=== PATIENT | male | born 1980 | race Hispanic/Latino ===

== ENCOUNTER 2017-04-13 02:24 | Inpatient (IN) | payer OTHER ==
[~2017-04-13] VITALS: Ht 180.3 cm; Wt 161.9 kg
[~2017-04-13 02:24] MED LIST: ATORVASTATIN CA20 M1 PO; BACTRIM DS TAB1 EACH PO; GLYBURIDE2.5 M1 PO; INDOMETHACIN25 M1 PO; LISINOPRIL2.5 M1 PO; METFORMIN HCL1000 M1 PO; TOPROL XL25 M1 PO
--- NOTE | 2017-04-13 10:34 | Admission Core Measures ---
Admission Meds I reviewed the following Meds: Current Medications Sig/Mathieu Start time Last Medication Dose Stop Time Status Admin Cefazolin Sodium 2,000 MG ONCE 04/13 0000 NR (Kefzol-Ancef Inj) 04/13 2359 Dexamethasone 10 MG ONCE 04/13 NR (Decadron) 04/13 2359 Heparin Sodium 5,000 UNIT ONCE 04/13 NR (Porcine) 04/13 2359 Acute Coronary Syndrome Inclusion Criteria ACS Diagnosis No Inpatient Core Measures LDL Reminder: If No, please order W/I first 24hr of stay Congestive Heart Failure Inclusion Criteria CHF Diagnosis No Cerebrovascular accident Inclusion Criteria CVA/TIA Diagnosis No Inpatient Core Measures Bedside Swallow Eval Reminder: If BSE failed, place ST order Antithrombotic Reminder: Order Antithrombotic Medication by end of day 2 Antithrombotic Reminder: Document Reason Antithrombotic Not ordered by end of day 2 AFIB/Flutter Reminder: If Present, add to problem list AFIB/Flutter Reminder: Order Anticoag Medication for pts with AFIB/Flutter Atherosclerosis Reminder: If Present, add to problem list LDL Reminder: If No, please order W/I first 24hr of stay PT Order Reminder: If No, please order Venous thromboembolism Inpatient Core Measures VTE Risk Factors: Obesity, Surgery [facility] prophylaxis d/t No contraindications No VTE Pharm Prophylaxis d/t No contraindications Inclusion Criteria - Per Current guidelines, there needs to be overlap - treatment for the first 5 days of Warfarin therapy. - Parenteral Anticoagulation (IV or SC) needs to be - given along with Warfarin therapy. VTE Diagnosis No VTE Type NONE VTE Confirmed by (Test) NONE Problem List As ranked by this Provider includes Assessment & Plan 1. S/P laparoscopic sleeve gastrectomy HOME MEDS Home Med List Atorvastatin Calcium 20 MG TABLET 1 TAB PO DAILY CHOLESDTEROL (Reported) Glyburide 2.5 MG TABLET 1 TAB PO DAILY DM II (Reported) Lisinopril 2.5 MG TABLET 1 TAB PO DAILY HTN (Reported) Metformin HCl 1,000 MG TABLET 1 TAB PO BID DM II (Reported) Metoprolol Succ XL (Toprol XL) 25 MG TAB 1 TAB PO DAILY HTN (Reported)
--- NOTE | 2017-04-13 10:53 | Operative Report ---
Operative/Inv Procedure Report Surgery Date: 04/13/17 Name of Procedure: Laparoscopic sleeve gastrectomy and upper endoscopy. Pre-Operative Diagnosis: Severe morbid obesity BMI 51 type 2 diabetes hypertension and hypercholesterolemia Post-Operative Diagnosis: Severe morbid obesity BMI 51 diabetes hypertension hypercholesterolemia. Estimated Blood Loss: 50ml to 100ml Surgeon/Art Gallery Director: VALENTÍN IRAHETA MD, M.D. Anesthesia: general endotracheal tube Implants: Premium and seam guard. Urine Output: No Dupree used Drains: One CORY drain in the right upper quadrant overlying the staple line Specimens: The stomach Microbiology: None Complications: Complications Operative Indication: The patient is a 36-year-old male with severe morbid obesity and be my 51 is undergone multiple attempts at weight loss with no success. His undergone his completely workup and evaluation for laparoscopic sleeve gastrectomy. The risks and potential complications which include bleeding infection deep venous thrombosis pulmonary embolism injury to the esophagus stomach and small intestine in detail and he understands. Operative/Procedure Note Note: Patient was brought into the operating room placed in the operating room table in the supine position. A footboard was placed so that the patient may be placed in steep reverse Trendelenburg. The patient was prepped and draped in a sterile fashion. Incision was made vertically below the umbilicus down to the fascia the fascia was incised transversely. The 0 Vicryl suture was placed in the fascia. 15 mm port was inserted into the umbilical area. The abdomen was insufflated with CO2 gas. The port is placed in the right upper quadrant. Movement reports place in the left upper quadrant. Her port is placed in the right midabdomen. Report is placed group home between the xiphoid and the umbilicus. Xiphoid 5 mm incision is made and a Rebecca liver retractor is inserted and the liver is elevated. The liver was noted to be edematous and large despite the patient is a 22 pounds preoperatively. The ports were placed in the usual location anatomically. Despite this the patient's torso was quite long. An reach to the stomach was somewhat longer. The gastro-colic ligament was taken down with the LigaSure device. The antrum was performed all the way up to the short gastric vessels which were sequentially taken down with the LigaSure device. The flap Was from the left crura of the diaphragm. There was a long reach to this area but adequate hemostasis was achieved. The N G-tube was used to drain the stomach. Was no evidence of a hiatal hernia. At this time the 40 Wallisian bougie was inserted into the stomach. He was performed with black cartridge staplers and seam guard. Because of torque multiple seam guards were used. 3 staplers devices were used. As torque was encountered during the stapling. All the staple lines were excellent and there were no missed firings of rocío. All block cartridges with seam guard were used for the entire staple line except one purple cartridge. With seam guard. The stomach was placed in a laparoscopic bag and retrieved through the umbilicus. Upper endoscopy was performed the usual fashion with Olympus endoscope inserted in the posterior oropharynx down the esophagus through the sleeve was visualized was active excellent sleeve that was not too tight. The duodenum was intubated and appeared within normal limits. Stomach was suctioned out and the scope was removed and the GE junction was noted at 40 cm. Laparoscopy was completed as a CORY drain was placed over the staple line and brought out the right upper quadrant. Under direct vision. Latissimus was closed with 2 interrupted 0 Vicryl sutures. The skin was closed with 4-0 Monocryl. Steri-Strips were placed in the wound site. Sterile dressing on the wound. The CORY was sewn in with a 2-0 nylon. Patient tolerated the procedure well was brought to recovery room in stable condition. end of dictation Findings: Long torso, no hiatal hernia. A torque secondary to abdominal wall thickness and density. Discharge Disposition: Same Day Admissions
--- NOTE | 2017-04-13 16:52 | PN- Bariatrics ---
Subjective Subjective: POSTOP CHECK takins stage 1 with some belching, no flatus/bm, +oob, +voiding, pain present though controlled w meds, no n/v Objective Vital Signs and I&Os Intake & Output 04/13 1600 04/13 0800 04/13 0000 04/12 1600 04/12 0800 04/12 0000 Intake Total Output Total Balance Patient 357 lb Weight Weight Reported by Patient Measurement Method Physical Exam: gen: nad card: s1s2 rrr pulm: ctab abd: obese, dressings with serosang drainage, JPx1-patent, serosang drainage, ttp throughout, soft Assessment/Plan Assessment/Plan A: POD0 sp lap gastric sleeve, with postop pain, stable. P: prn pain meds oob, ambulate, dvt ppx stg 1 diet, npo p mn, ugi in am am labs ivf i&os home meds will dw attending Core Measures/Miscellaneous Venous Thromboembolism VTE Risk Factors: Surgery VTE Contraindications: No Contraindications VTE Diagnosis: No VTE Type: NONE VTE Confirmed by (Test): NONE Beta Micah Is Beta Micah a Home Med? Yes Antibiotics Is Patient on Antibiotics? Yes
[2017-04-13 18:56] VITALS: BP 164/79
[2017-04-13 22:27] VITALS: BP 152/86
--- NOTE | 2017-04-14 07:58 | PN- Bariatrics ---
See Addendum Subjective Subjective: Feels ok. Vomited once a few hours ago, but currently not nauseous. NPO awaiting upper gi study. Objective Vital Signs and I&Os Vital Signs Date Time Temp Pulse Resp B/P B/P Pulse O2 O2 Flow FiO2 Mean Ox Delivery Rate 04/13 2227 99.2 90 18 152/86 97 Room Air 06/ 2200 96 Room Air 06/ 1856 98.5 106 18 164/79 96 Room Air 06/ 1800 96 Room Air Room Air 06/ 1723 Room Air 06/ 1600 96 Room Air Room Air Intake & Output 04/14 0800 06/ 0000 06/05 1600 06/ 0800 06/ 0000 06/ 1600 Intake Total 1000 585 Output Total 1485 510 Balance -485 75 Intake, IV 1000 375 Intake, Oral 210 Output, 30 Drainage Output, Other 35 Output, Urine 1450 480 Patient 357 lb Weight Weight Reported by Patient Measurement Method Current Medications: Current Medications Sig/Mathieu Start time Last Medication Dose Route Stop Time Status Admin Acetaminophen/ 15 ML Q6P PRN 04/13 1415 AC Hydrocodone Bitart PO Cefazolin Sodium 1,000 MG IQ8 04/13 1600 DC 04/14 IV / 0001 0207 Cefazolin Sodium 2,000 MG ONCE 04/13 0000 DC IV 04/13 2359 Dexamethasone 16 MG .STK-MED ONE 04/13 1111 DC IM 04/13 1112 Dexamethasone 10 MG ONCE / 0000 DC IV / 2359 Enoxaparin Sodium 40 MG 0600 / 0600 04/14 [place] 0527 Heparin Sodium 5,000 UNIT Q8 04/13 2200 DC 04/13 (Porcine) SC 04/13 2201 2118 Heparin Sodium 5,000 UNIT ONCE / 0000 DC (Porcine) SC / 2359 Hydralazine HCl 20 MG .STK-MED ONE 04/13 1240 DC IM 06 1241 Hydralazine HCl 20 MG .STK-MED ONE 04/13 1209 DC IM 04/13 1210 Hydromorphone HCl 1 MG Q4P PRN 04/13 1415 AC IV Hyoscyamine 0.125 MG Q4 04/13 1400 AC 04/14 0527 Insulin Aspart 0 Q6 06 1200 AC 06 SC 1849 Ketorolac 30 MG Q8P PRN 04/13 1415 AC Tromethamine IV 04/16 1414 Metoprolol Succinate 25 MG DAILY 04/14 1000 AC PO Metoprolol Tartrate 5 MG .STK-MED ONE 04/13 1152 DC IV 04/13 1153 Ondansetron HCl 4 MG Q6P PRN 04/13 1415 AC 04/14 IV 0527 Pantoprazole Sodium 40 MG DAILY 04/13 1041 AC IV Potassium Chloride 20 MEQ .Q8H 04/13 1415 CAN Dextrose/Sodium 1,000 ML IV Chloride Potassium Chloride 20 MEQ Q8H 04/13 1415 AC 04/14 Dextrose/Sodium 1,000 ML IV 0207 Chloride Simethicone 40 MG Q6P PRN 04/13 1415 AC 04/14 PO 0527 Results Last 48 Hours of Labs: Laboratory Tests 04/14 0725 Chemistry Sodium Pending Potassium Pending Chloride Pending Carbon Dioxide Pending Anion Gap Pending BUN Pending Creatinine Pending BUN/Creatinine Ratio Pending Hematology CBC w Diff Pending WBC Pending RBC Pending Hgb Pending Hct Pending MCV Pending MCH Pending RDW Pending Plt Count Pending MPV Pending PUBS MCHC Pending Assessment/Plan Assessment/Plan This 36 year old male with hx dm, htn, gerd, is now POD#1 s/p lap sleeve gastrectomy currently npo awaiting upper gi study pain control as ordered f/u labs and ugi study monitor accuchecks protonix - gi ppx lovenox - dvt ppx. lovenox teaching for home oob/ambulation encouraged beta micah (toprol xl) continued (home med) patient seen & examined with Core Measures/Miscellaneous Venous Thromboembolism VTE Risk Factors: Surgery VTE Contraindications: No Contraindications VTE Diagnosis: No VTE Type: NONE VTE Confirmed by (Test): NONE Beta Micah Is Beta Micah a Home Med? Yes Antibiotics Is Patient on Antibiotics? Yes
[2017-04-14 08:25] VITALS: BP 176/100
--- NOTE | 2017-04-14 08:26 | Patient Discharge Instructions ---
Discharge Instructions General Discharge Information You were seen/treated for: Severe morbid obesity (BMI 51) type 2 diabetes, hypertension, hypercholesterolemia You had these procedures: Surgery Date: 04/13/17 Name of Procedure: Laparoscopic sleeve gastrectomy and upper endoscopy Watch for these problems: fever>101.3, increased pain, redness/swelling/drainage No bath, but you may shower: Yes Other wound care: ok to remove outer dressings. leave white steri strips in place. expect drainage from drain site, and use dry guaze as needed for this. ok to shower. keep incisions clean & dry. Diet Continue normal diet: No Recommended Diet: Bariatric Additional DIET Information: weekly bariatric stage diet advancement as tolerated, as directed Activity Full Activity/No Limits: No Activity Self Limited: Yes Pounds, do NOT lift more than: 10 Other activity limits: no heavy lifting. no strenuous activity. Acute Coronary Syndrome Inclusion Criteria At DC or during hospital stay patient has or had the following: ACS DIAGNOSIS No Discharge Core Measures Meds if any: Prescribed or Continued at Discharge Meds if any: NOT Prescribed or Continued at Discharge Congestive Heart Failure Inclusion Criteria At DC or during hospital stay patient has or had the following: CHF DIAGNOSIS No Discharge Core Measures Meds if any: Prescribed or Continued at Discharge Meds if any: NOT Prescribed or Continued at Discharge Cerebrovascular accident Inclusion Criteria At DC or during hospital stay patient has or had the following: CVA/TIA Diagnosis No Discharge Core Measures Meds if any: Prescribed or Continued at Discharge Meds if any: NOT Prescribed or Continued at Discharge Venous thromboembolism Inclusion Criteria VTE Diagnosis No VTE Type NONE VTE Confirmed by (Test) NONE Discharge Core Measures - Per Current guidelines, there needs to be overlap - treatment for the first 5 days of Warfarin therapy. - If discharged on Warfarin prior to 5 days of - overlap therapy, the patient will need to be - assessed for post discharge needs including - *Post discharge parental anticoagulation - *Warfarin and/or parental anticoagulation education - *Follow up date to check INR post discharge At least 5 days overlap therapy as Inpatient No Meds if any: Prescribed or Continued at Discharge Note: Overlap Therapy is Warfarin and Anticoagulant Meds if any: NOT Prescribed or Continued at Discharge
[2017-04-14] MEDS ORDERED: PROTONIX40 M3 PO (08:28)
[2017-04-14] MEDS ORDERED: HYDROCODON-ACET15 ML PO (08:28)
[2017-04-14] MEDS ORDERED: LOVENOX40 MG/0.1 SC (08:28)
[2017-04-14 08:34] LABS: ABSOLUTE BASOPHIL COUNT 0 /CUMM (0.0-0.2); ABSOLUTE EOSINOPHIL COUNT 0 /CUMM (0.0-0.7); ABSOLUTE GRANULOCYTE CT 11.6 /CUMM (1.4-6.5); ABSOLUTE LYMPH COUNT 2.1 /CUMM (1.2-3.4); ABSOLUTE MONOCYTE COUNT 1.3 /CUMM (0.10-0.60); BASOPHIL % 0.3 % (0.0-2.0); EOSINOPHIL % 0 % (0-5); HEMATOCRIT 39.7 % (42-52); MEAN CORPUSCULAR HGB 27.3 PG (27.0-31.0); MEAN CORPUSCULAR HGB CONC 32.3 G/DL (33.0-37.0); MEAN CORPUSCULAR VOLUME 84.4 FL (80.0-94.0); MEAN PLATELET VOLUME 8.4 FL (7.4-10.4); PLATELET COUNT 398 /CUMM (130-400); RBC DISTRIBUTION WIDTH 14.7 % (11.5-14.5)
--- NOTE | 2017-04-14 08:42 | Surg Short-stay <48hrs Dis Sum ---
Visit Information Visit Dates Admission Date: 04/13/17 Discharge Date: 04/15/17 Surgical Short Stay DC Summary Admission Diagnosis: severe morbid obesity (BMI 51) type 2 diabetes hypertension, hypercholesterolemia Final Diagnosis: same, s/p Laparoscopic sleeve gastrectomy and upper endoscopy. Procedure(s): Surgery Date: 04/13/17 Name of Procedure: Laparoscopic sleeve gastrectomy and upper endoscopy. Summary/Significant Findings: Electively scheduled laparoscopic sleeve gastrectomy and upper endoscopy by Dr.Neil Hernandez on 04/13/17 for history of severe morbid obesity (BMI 51), type 2 diabetes, hypertension, and hypercholesterolemia. He had post-operative nausea and vomiting, which was treated with medications. An upper gi study was done on post-op day#1 to rule out leak / obstruction. He was tolerating a bariatric diet prior to his discharge, and the drain was removed also. Lovenox teaching was done for continued treatment at home, as per his pre-operative risk assessement. His beta renee was continued post-operatively, expected to be titrated off as an outpatient. His oral diabetic medications were stopped post-operatively, and his accuchecks were stable during his hospitalization prior to his discharge to home on post-op day#2. He will continue both toprol xl and lisinopril for his hypertension at home, to follow up with his PCP within a month after discharge. Condition at Discharge: stable Discharge Disposition: home or self care Discharge instructions provided to patient/family: Yes Post discharge follow-up plan: follow up with Dr.Neil Hernandez within one week discharge instructions provided at the time of discharge to home
--- NOTE | 2017-04-14 10:26 | RADIOLOGY REPORT ---
EXAMINATION: FL UPPER GI SERIES CLINICAL INFORMATION: 36-year-old male status post sleeve gastrectomy. COMPARISON: None TECHNIQUE: A single contrast upper GI series with fluoroscopy and spot imaging was performed. The patient ingested low 30 mL of Gastroview contrast material without difficulty and was evaluated in the upright and recumbent positions. FINDINGS: The initial abdominal radiograph shows normal bowel gas pattern and drainage tube in the epigastric region of the upper abdomen. Esophageal motility was normal with patient evaluated in the upright position. There was no delay in passage of contrast material through the esophagus, gastric sleeve and into the normal duodenum. The stomach had a relatively narrow configuration, as expected after sleeve gastrectomy. No contrast leakage. FLUOROSCOPY TIME: 19 seconds NUMBER OF IMAGES: 7 spot fluoroscopy images were acquired. IMPRESSION: Normal postoperative appearance of the sleeve gastrectomy without contrast leakage.
[2017-04-14 14:25] VITALS: BP 154/100
[2017-04-14 16:00] VITALS: BP 148/92
[2017-04-14 21:59] VITALS: BP 160/98
--- NOTE | 2017-04-15 07:03 | PN- Bariatrics ---
Subjective Subjective: Tolerating stage 1 diet. Upper gi negative for leak or obstruction yesterday. No more nausea. Passing flatus and +bm. Voiding well. Ambulating well. No dizziness. No shortness of breath. No chest pains. Anticipates discharge to home today. Objective Vital Signs and I&Os Vital Signs Date Time Temp Pulse Resp B/P B/P Pulse O2 O2 Flow FiO2 Mean Ox Delivery Rate 04/15 0000 96 CPAP 04/14 2200 96 Room Air 04/14 2159 99.2 83 20 160/98 96 Room Air 04/14 1600 148/92 04/14 1425 98.9 77 20 154/100 95 04/14 1400 95 Room Air Room Air 04/14 1008 80 162/90 04/14 0825 98.7 78 20 176/100 95 04/14 0800 96 Room Air Room Air Intake & Output 04/15 0800 / 0000 04/14 1600 04/14 0800 04/14 0000 05 1600 Intake Total 720 143 816 9077 585 Output Total 435 084 674 2557 510 Balance 285 -170 300 -485 75 Intake, IV 600 690 852 0939 375 Intake, Oral 120 150 330 0 210 Number 1 Bowel Movements Output, 35 20 30 30 Drainage Output, Other 35 Output, Urine 400 621 618 0252 480 Patient 357 lb Weight Weight Reported by Patient Measurement Method Physical Exam: General - alert & oriented x 3. comfortable. no acute distress. Lungs - clear bilaterally. no w/r/r. Cardiac - s1s2. reg. Abdomen - soft. CORY drain with serosang drainage. umbilical dressing saturated. expected bren-incisional tenderness. Extremities - warm bilaterally. no c/c/e. calves soft and nontender b/l. Current Medications: Current Medications Sig/Mathieu Start time Last Medication Dose Route Stop Time Status Admin Acetaminophen/ 15 ML Q6P PRN 04/13 1415 AC Hydrocodone Bitart PO Dexamethasone 10 MG ONCE ONE 04/14 0815 DC 04/14 IV PUSH 04/14 0816 0815 Enoxaparin Sodium 40 MG 0604/14 0600 AC 04/15 SC 0615 Hydromorphone HCl 1 MG Q4P PRN 04/13 1415 AC IV Hyoscyamine 0.125 MG Q4 04/13 1400 AC 04/15 0615 Insulin Aspart 0 Q6 04/13 1200 04/14 SC 1738 Ketorolac 30 MG Q8P PRN 04/13 1415 AC Tromethamine IV 04/16 1414 Lisinopril 2.5 MG DAILY 04/15 0700 AC PO Metoprolol Succinate 25 MG DAILY 04/14 1000 AC 04/14 PO 1008 Ondansetron HCl 4 MG Q6P PRN 04/13 1415 AC 04/14 IV 0527 Pantoprazole Sodium 40 MG DAILY 04/13 1041 AC 04/14 IV 0814 Patient Medication 1 ED .STK-MED ONE 04/14 1421 DC Teaching ED 04/14 1422 Potassium Chloride 20 MEQ Q8H 04/13 1415 DC 04/14 Dextrose/Sodium 1,000 ML IV 0207 Chloride Scopolamine HBr 1 PAT ONE ONE 04/14 0815 PR 04/14 [facility] 04/14 0816 0820 Simethicone 40 MG Q6P PRN 04/13 1415 AC 04/14 PO 1351 Sodium Chloride 1,000 ML Q13H 04/14 0830 DC 04/14 IV 2247 Results Last 48 Hours of Labs: Laboratory Tests 04/14 0725 Chemistry Sodium (137 - 145 mmol/L) 138 Potassium (3.5 - 5.1 mmol/L) 4.3 Chloride (98 - 107 mmol/L) 103 Carbon Dioxide (22 - 30 mmol/L) 25 Anion Gap (5 - 16) 11 BUN (9 - 20 mg/dL) 8 L Creatinine (0.7 - 1.2 mg/dL) 0.8 Estimated GFR (>60 ml/min) > 60 BUN/Creatinine Ratio (7 - 25 %) 10.0 Hematology CBC w Diff NO MAN DIFF REQ WBC (4.8 - 10.8 /CUMM) 15.0 H RBC (4.70 - 6.10 /CUMM) 4.70 Hgb (14.0 - 18.0 G/DL) 12.8 L Hct (42 - 52 %) 39.7 L MCV (80.0 - 94.0 FL) 84.4 MCH (27.0 - 31.0 PG) 27.3 RDW (11.5 - 14.5 %) 14.7 H Plt Count (130 - 400 /CUMM) 398 MPV (7.4 - 10.4 FL) 8.4 Gran % (42.2 - 75.2 %) 77.0 H Lymphocytes % (20.5 - 51.1 %) 13.8 L Monocytes % (1.7 - 9.3 %) 8.9 Eosinophils % (0 - 5 %) 0 Basophils % (0.0 - 2.0 %) 0.3 Absolute Granulocytes (1.4 - 6.5 /CUMM) 11.6 H Absolute Lymphocytes (1.2 - 3.4 /CUMM) 2.1 Absolute Monocytes (0.10 - 0.60 /CUMM) 1.3 H Absolute Eosinophils (0.0 - 0.7 /CUMM) 0 Absolute Basophils (0.0 - 0.2 /CUMM) 0 PUBS MCHC (33.0 - 37.0 G/DL) 32.3 L Assessment/Plan Assessment/Plan This 36 year old male with hx dm, htn, gerd, is now POD#2 s/p lap sleeve gastrectomy tolerating stage 1 bariatric diet d/c iv fluids restart lisinopril 2.5 mg daily for hypertension and continue at home continue Toprol xl oob/ambulating well lovenox teaching done, to continue at home for dvt ppx protonix - gi ppx accuchecks stable off oral diabetic medications CORY drain removed d/c home today will d/w Core Measures/Miscellaneous Venous Thromboembolism VTE Risk Factors: Surgery VTE Contraindications: No Contraindications VTE Diagnosis: No VTE Type: NONE VTE Confirmed by (Test): NONE Beta Micah Is Beta Micah a Home Med? Yes Antibiotics Is Patient on Antibiotics? Yes
[2017-04-15 07:11] VITALS: BP 150/102
[2017-04-15 08:08] VITALS: BP 152/100
== END 2017-04-15 08:20 | DRG 403 ==
LOC: 2NB 02:24 → SDA 02:24 → ENRESERV 11:44 → ENTRNSPT 13:15 → EDTRNSPT 13:20 → EDTRNSPTTYP 13:42 → EDTRNSPT 13:42 → 2NB 13:53 → CMPTRNSPT 13:55 → 2NB 14:11 → ENPENDDIS 04-15 07:02 → 2NB 04-15 08:20
PROVIDERS: Physician Assistant Surgical; ADMIT Surgery
PROC: 0DJ08ZZ Inspection of Upper Intestinal Tract, Via Natural or Artificial Opening Endoscopic (ICD-10-PCS; principal; 2017-04-13)
PROC: 0DB64Z3 Excision of Stomach, Percutaneous Endoscopic Approach, Vertical (ICD-10-PCS; principal; 2017-04-13)
PROC: 3E0T3BZ Introduction of Anesthetic Agent into Peripheral Nerves and Plexi, Percutaneous Approach (ICD-10-PCS; 2017-04-13)
DX: E66.01 Morbid (severe) obesity due to excess calories (principal); E11.9 Type 2 diabetes mellitus without complications; Z79.84 Long term (current) use of oral hypoglycemic drugs; E78.00 Pure hypercholesterolemia, unspecified; G47.30 Sleep apnea, unspecified; I10 Essential (primary) hypertension; Z68.42 Body mass index [BMI] 45.0-49.9, adult; R11.2 Nausea with vomiting, unspecified; Z68.43 Body mass index [BMI] 50.0-59.9, adult
CPT/HCPCS: 2NBP; 36415; 74240; 82436; 88307; J0131; J0360; J0690; J1100; J1170; J1644; J1650; J1885; J2405; J7042; S5012